=== PATIENT | male | born 1935 | race Caucasian/White ===

== ENCOUNTER 2022-05-05 14:57 | Emergency (ER) | payer OTHER | END 2022-05-05 17:30 | disposition home or self-care (01) | LOC: JP.ED 14:57 | DX: S52.592A Other fractures of lower end of left radius, initial encounter for closed fracture (principal); S00.03XA Contusion of scalp, initial encounter; V57.5XXA Driver of pick-up truck or van injured in collision with fixed or stationary object in traffic accident, initial encounter; Y92.410 Unspecified street and highway as the place of occurrence of the external cause | CPT/HCPCS: 29125; 70450; 73090-LT; 99285 ==

== ENCOUNTER 2022-10-19 07:52 | Emergency (ER) | payer OTHER | END 2022-10-19 10:27 | disposition home or self-care (01) | LOC: JP.ED 07:52 | DX: R20.0 Anesthesia of skin (principal); E11.9 Type 2 diabetes mellitus without complications; Z79.84 Long term (current) use of oral hypoglycemic drugs | CPT/HCPCS: 93931-LT; 99284 ==

== ENCOUNTER 2023-06-23 21:39 | Emergency (ER) | payer OTHER ==
[2023-06-23 21:56] LABS: BASOPHILS ABSOLUTE AUTO 0.03 K/uL (0.00-0.10); BASOPHILS PERCENT AUTO 0.3 % (0.1-1.3); EOSINOPHILS ABSOLUTE AUTO 0.03 K/uL (0.00-0.40); EOSINOPHILS PERCENT AUTO 0.3 % (0.0-5.4); HEMATOCRIT 47.3 % (38.4-49.7); IMMATURE GRAN ABSOLUTE AUTO 0.02 K/uL (0.00-0.23); IMMATURE GRAN PERCENT AUTO 0.2 % (0.0-0.7); LYMPHOCYTES ABSOLUTE AUTO 1.49 K/uL (0.8-3.3); LYMPHOCYTES PERCENT AUTO 16.5 % (11.4-47.7); MEAN CORPUSCULAR HEMOGLOBIN 31.4 pg (31.6-35.5); MEAN CORPUSCULAR HGB CONC 33.8 g/dL (31.6-35.5); MEAN CORPUSCULAR VOLUME 92.9 fL (81.4-99.0); MONOCYTES ABSOLUTE AUTO 0.46 K/uL (0.20-0.90); MONOCYTES PERCENT AUTO 5.1 % (3.3-12.6); NEUTROPHILS ABSOLUTE AUTO 6.98 K/uL (1.0-7.6); NEUTROPHILS PERCENT AUTO 77.6 % (40.0-78.1); PLATELET COUNT,PLT 244 K/uL (130-375); RED BLOOD CELL COUNT 5.09 M/uL (4.14-5.76)
[2023-06-23] MEDS: Heparin Sodium 5,000 Units/ML Vial IVPUSH ONE (21:56)
[2023-06-23] MEDS: Morphine 2 MG/ML SYRINGE ONE (21:59)
[2023-06-23] MEDS: Morphine 2 MG/ML SYRINGE IVPUSH ONE (21:59)
[2023-06-23] MEDS: Ticagrelor 90 MG Tab PO ONE ×2 (22:01→22:14)
[2023-06-23] MEDS: LORazepam 2 MG/ML SDV IVPUSH ONE (22:08)
[2023-06-23 22:11] LABS: PROTHROMBIN TIME 9.9 sec (9.2-10.6); PTT,PARTIAL THROMBOPLSTIN TIME 21.8 sec (21.8-27.3)
[2023-06-23] MEDS: LORazepam 2 MG/ML SDV ONE (22:14)
[2023-06-23 22:15] LABS: A/G RATIO 0.9 (1.2-2.2); ALANINE AMINOTRANSFERASE,ALT 21 U/L (12-78); ALBUMIN 4.1 g/dL (3.4-5.0); ALKALINE PHOSPHATASE 63 U/L (46-116); ASPARTATE AMNIOTRANSFERASE,AST 26 U/L (15-37); BILIRUBIN TOTAL 0.4 mg/dL (0.2-1.0); BLOOD UREA NITROGEN,BUN 28 mg/dL (7-18); CALCIUM 9.4 mg/dL (8.5-10.1); CARBON DIOXIDE,CO2 24 mmol/L (21-32); CHLORIDE,CL 98 mmol/L (100-108); CREATININE 1.9 mg/dL (0.8-1.3); EST CRCL DRUG DOSING (CG) 26.36 mL/min; ESTIMATED GFR 33 mL/min (>60); GLUCOSE RANDOM 335 mg/dL (74-106); POTASSIUM,K 5.3 mmol/L (3.6-5.2); PROTEIN TOTAL,TP 8.8 g/dL (6.4-8.2); SODIUM,NA 134 mmol/L (140-148)
[2023-06-23] MEDS: Nitroglycerin/D5W 0 MG/0 ML BOTTLE ONE (22:15)
[2023-06-23 22:16] LABS: ANION GAP 17.3 mmol/L (5.0-14.0); TROPONIN I HIGH SENSITIVITY 71.9 pg/mL (<=60.3)
[2023-06-23] MEDS: Heparin Sodium/D5W 25,000 UNITS/500 ML BAG IV SCH (22:35)
== END 2023-06-23 22:10 | disposition other institution (70) ==
LOC: JP.ED 21:39
DX: I21.3 ST elevation (STEMI) myocardial infarction of unspecified site (principal); Z11.9 Encounter for screening for infectious and parasitic diseases, unspecified; Z79.84 Long term (current) use of oral hypoglycemic drugs; Z79.899 Other long term (current) drug therapy
CPT/HCPCS: 36415; 80053; 84484; 85025; 85610; 85730; 93005; 93010; 96374; 96375; 99285; A9270; J1644; J2060; J2270